=== PATIENT | male | born 1940 | race Caucasian/White ===

== ENCOUNTER 2020-12-12 09:45 | Observation (INO) ==
--- NOTE | 2020-12-11 09:14 | History & Physical Report ---
Date of Service December 11, 2020 Assessment & Plan (1) Primary osteoarthritis of right knee: Plan: Treatment options discussed with patient. He has failed conservative measures. He would like to proceed with surgical intervention. Risks, benefits and alternatives to surgery including but not limited to infection, DVT, pain, stiffness, need for revision surgery, damage to blood vessels, damage to nerves, PE, , were discussed with the patient and they wish to proceed. Plan on Right total knee arthroplasty on 12/12/20 at [facility]. Will plan on HHPT post discharge, ASA 81mg BID x 1 mo post op. All questions answered. F/u post op. History of Present Illness Chief Complaint: Right knee pain Primary Care Provider: Yarely Ayala MD 80 year old male with PMHx significant for hx of [place], DM2, ANABEL, GERD, chronic anemia, HTN who presents with long standing right knee pain. He has failed conservative measures including injections. Pain interfering with his ability to carry out normal daily activity. He would like to proceed with surgical intervention. Patient denies headaches, sweats, fevers, chills, double vision, blurred vision, cough, sore throat, dysphagia, chest pain, sob, wheezing, n/v/d/c, numbness, tingling, fatigue, urinary symptoms, mood disorders. ROS positive for right knee pain and stiffness. Allergies Allergy/AdvReac Type Severity Reaction Status Date / Time diphenhydramine AdvReac Rash Verified 12/07/20 09:39 [From Benadryl] oxycodone AdvReac Rash Verified 12/07/20 09:39 Home Medications Medication Instructions Recorded Confirmed Type duloxetine 60 mg capsule,delayed 60 mg PO QAM 02/27/20 12/07/20 History release ezetimibe 10 mg tablet (Zetia) 10 mg PO PM 02/27/20 12/07/20 History ferrous sulfate 325 mg (65 mg 325 mg PO QAM 02/27/20 12/07/20 History iron) capsule,extended release lisinopril 10 mg tablet 10 mg PO QAM 02/27/20 12/07/20 History metformin 500 mg tablet 500 mg PO BID 02/27/20 12/07/20 History multivitamin 1 cap PO QAM 02/27/20 12/07/20 History omeprazole 20 mg capsule,delayed 20 mg PO QAM 02/27/20 12/07/20 History release simvastatin 40 mg tablet 40 mg PO HS 02/27/20 12/07/20 History Past Med/Surg History Medical History (Updated 12/11/20 @ 09:12 by Hira Durant) Diabetes mellitus, type 2 NIDDM High cholesterol History of COVID-19 05/2019 had all symptoms and was not hospitalized RINCON (hard of hearing) Hypertension Myocardial Infarction s/p CABG (1999) Osteoarthritis Surgical History (Updated 12/07/20 @ 09:43 by Betty Solitario RN) History of ankle surgery left History of arthroscopy of right shoulder History of carpal tunnel surgery right and left History of coronary artery bypass graft CABG (1999) x 4 at [facility] follow with DR. Villeda History of tooth extraction all teeth Social History Smoking Status: Current some day smoker Cigarettes Per Day: ocas; Second Hand Exposure: No; Hx Alcohol Use: No Hx Substance Use: No Preferred Language: Serbian Communication Ability: Effective Prototyper Required: No Beliefs That Will Affect Care: None Current Living Situation: Spouse Feels Safe at Home: Yes Assistive Devices: Glasses Review of Systems All systems reviewed & are unremarkable except as noted in HPI & below Physical Exam Constitutional: well developed and well nourished; no acute distress Eyes: PERRL, conjunctivae normal, anicteric sclerae ENMT: external ear and nose normal, oropharynx normal Neck: trachea midline, no thyromegaly Respiratory: normal respiratory effort, lungs clear to auscultation Cardiovascular: RRR, no murmur, no edema Musculoskeletal: Right knee: Varus alignment. Tenderness medial joint line. Negative valgus and varus stress, positive Marcela's. ROM 0-125. Skin: no rashes, warm and dry Neurologic: patellar DTR's 2+ bilat, sensation intact Psychiatric: A+Ox3, euthymic affect Results & Data ([facility]) Diagnostic Findings Right knee: severe oa medially with bone on bone and bone loss, large cyst prox tibia. Medial subluxation tibia.
--- NOTE | 2020-12-11 10:03 | Anesthesiology Consultation ---
Date of Service December 11, 2020 Assessment & Plan (1) Encounter for pre-operative examination: Chart Review Chart Review: Acceptable Risk for Surgery and Patient NOT seen in Pre Admission Testing - Check BSG AM DOS Per nursing assessment 12/07/2020, patient denies any recent travel. No known Covid infection in the past 90 days. Patient is vaccinated for Covid. No known Covid positive contacts or Covid related symptoms. Covid test 12/07/20= negative Per PCP phone note 11/14/2020 = recent labs reviewedblood count and iron levels are improved after iron infusions. " I do now consider him medically stable to undergo knee replacement." PCP will notify surgeon so that knee surgery can be rescheduled. Patient is to continue iron supplement by mouth daily. History Surgery Operation Date: 12/12/20 12:05 Proposed Procedures p Right Total Knee Arthroplasty - Franklyn Raza MD Height/Weight Height: 5 ft 10 in Weight: 88.904 kg Allergies Allergy/AdvReac Type Severity Reaction Status Date / Time diphenhydramine AdvReac Rash Verified 12/07/20 09:39 [From Benadryl] oxycodone AdvReac Rash Verified 12/07/20 09:39 Medications Home Medications Medication Instructions Recorded Confirmed Last Taken duloxetine 60 mg capsule,delayed 60 mg PO QAM 02/27/20 12/07/20 Unknown release ezetimibe 10 mg tablet (Zetia) 10 mg PO PM 02/27/20 12/07/20 Unknown ferrous sulfate 325 mg (65 mg 325 mg PO QAM 02/27/20 12/07/20 Unknown iron) capsule,extended release lisinopril 10 mg tablet 10 mg PO QAM 02/27/20 12/07/20 Unknown metformin 500 mg tablet 500 mg PO BID 02/27/20 12/07/20 Unknown multivitamin 1 cap PO QAM 02/27/20 12/07/20 Unknown omeprazole 20 mg capsule,delayed 20 mg PO QAM 02/27/20 12/07/20 Unknown release simvastatin 40 mg tablet 40 mg PO HS 02/27/20 12/07/20 Unknown Past Medical History Medical History Diabetes mellitus, type 2 NIDDM High cholesterol History of COVID-19 05/2019 had all symptoms and was not hospitalized QAWALANGIN (hard of hearing) Hypertension Myocardial Infarction s/p CABG 4 vessel (1999) Osteoarthritis Past Surgical History Surgical History History of ankle surgery left History of arthroscopy of right shoulder History of carpal tunnel surgery right and left History of coronary artery bypass graft CABG (1999) x 4 at [facility] follow with DR. Villeda History of tooth extraction all teeth Social History Smoking Status: Current some day smoker tobacco type: cigarettes Smoking cigarettes per day: ocas Do You Dip or Chew Tobacco: No Hx Alcohol Use: No Hx Substance Use: No substance use type: does not use Lab Results Anesthesia Preop Results Results Anesthesia Widget: WBC 5.44 K/uL (4.8-10.8) 12/07/20 Hgb 10.8 g/dL (14.0-18.0) L 12/07/20 Hct 33.4 % (42-52) L 12/07/20 Plt 238 K/uL (130-400) 12/07/20 Na 138 mmol/L (136-145) 12/07/20 K 4.7 mmol/L (3.5-5.1) 12/07/20 Cl 110 mmol/L (98-107) H 12/07/20 CO2 23 mmol/L (21-32) 12/07/20 BUN 22 mg/dl (7-18) H 12/07/20 Creat 1.54 mg/dl (0.6-1.4) H 12/07/20 Glucose Level 95 mg/dl (70-99) 12/07/20 PT 9.8 Seconds (9.0-12.0) 12/07/20 PTT 27.9 Seconds (21.0-31.0) 12/07/20 INR 1.0 (0.9-1.1) 12/07/20 HA1c 6.2 % (4.5-5.6) H 12/07/20 Urine Color Yellow 12/07/20 Urine Appearance Clear (Clear) 12/07/20 Urine pH 5.5 (4.5-7.5) 12/07/20 Urine Specific [place] 1.015 (1.000-1.030) 12/07/20 Urine Protein Negative (Negative) 12/07/20 Urine Glucose (UA) Negative (Negative) 12/07/20 Urine Ketones Negative (Negative) 12/07/20 Urine Blood Negative (Negative) 12/07/20 Urine Nitrite Negative (Negative) 12/07/20 Urine Bilirubin Negative (Negative) 12/07/20 Urine Urobilinogen Negative (Negative) 12/07/20 Urine Leukocyte Esterase Negative (Negative) 12/07/20 Blood Type A Positive 12/07/20 Antibody Screen NEGATIVE 12/07/20 Lab Comments: Anemia chronic and stable since at least Mar 2020 Creatine ranges from 1.3-1.5 since at least January 2020 Testing Electrocardiogram Date: 03/06/20 SB with first degree AVB at 59bpm. NS TWA. Chest X-Ray Date: 01/13/20 No plain film evidence of acute cardiopulmonary process. Nonspecific interstitial prominence. Basilar scar/atelectasis. Echocardiogram Date: 01/18/20 EF 55%. Grade 1 diastolic dysfunction moderate LAD. Mild RAD. Mild MR. Mild to moderate AR directed centrally. Physiologic [place] directed centrally. Interatrial septum has lipomatous hypertrophy. Enlarged aortic root.
[~2020-12-12 09:45] MED LIST: ACETAMINOPHEN 500 MG TAB PO SCH; BUPIVACAINE 0.25% 30 ML VIAL ONE; BUPIVACAINE 0.5 % 5 MG/1 ML PF 10ML VIAL ONE; CeleBREX 200 MG CAP PO SCH; FAMOTIDINE 20 MG TAB PO SCH; GABAPENTIN 300 MG CAP PO SCH; LR 500ML BOLUS, THEN 15ML/HR IV SCH; METOCLOPRAMIDE HCL 10 MG TABLET PO SCH; ROPIVACAINE 0.5% HCL/PF 150 MG, BUPIVACAINE 0.75% MPF 20 ML, EPINEPHrine 30MG/30ML (OR ... INSTIL SCH; TRANEXAMIC ACID 1,000 MG **IV Intra-op IV SCH; TRANEXAMIC ACID 1,000 MG **IV Pre-op IV SCH; ceFAZolin 2000MG 2,000 MG/15 ML SYR IV SCH
[2020-12-12] MEDS ORDERED: fentaNYL citrate 100 MCG/2 ML VIAL ONE (11:24)
[2020-12-12] MEDS ORDERED: PROPOFOL IV EMULSION 10 MG/ML 20 ML VIAL IV ONE (11:24)
[2020-12-12] MEDS ORDERED: fentaNYL citrate 100 MCG/2 ML VIAL IV PRN (11:35)
[2020-12-12] MEDS ORDERED: ePHEDrine sulfate 50 MG/ML AMP IV PRN (11:35)
[2020-12-12] MEDS ORDERED: ONDANSETRON INJ 2 MG/ML 2 ML VIAL IV PRN ×2 (11:35→16:54)
[2020-12-12] MEDS ORDERED: ATROPINE SULFATE 0.1 MG/ML 10ML SYR IV PRN (11:35)
--- NOTE | 2020-12-12 12:07 | History & Physical Bridge Note ---
Date of Service December 12, 2020 History & Physical Bridge Note I have examined the patient, reviewed the History & Physical and in the interval since the performance of the History & Physical I have noted the following changes of clinical significance: no changes noted
[2020-12-12] MEDS ORDERED: ORTHO JOINT ANESTHETIC ONE (12:27)
[2020-12-12] MEDS ORDERED: HYDROmorphone INJ 2 MG/ML SYR/VIAL ONE (13:21)
--- NOTE | 2020-12-12 15:04 | Post Operative Brief Note ---
Immediate Post Op Note v1 Date of Surgery December 12, 2020 Pre & Post Diagnosis Operation Date: 12/12/20 12:05 Pre-Op Diagnosis: Osteoarthritis, Right Knee, large tibial bone cyst Post-Op Diagnosis: Osteoarthritis, Right Knee, large tibial bone cyst I identified the patient and participated in the time-out.: Yes Procedure Operation Date: 12/12/20 12:05 Actual Procedures p Right Total Knee Arthroplasty(Right) curettage and cementing of tibial bone cyst and superficial wound VAC- Franklyn Raza MD Surgeon Franklyn Raza MD Carbon Lamp Cleaner Georges ROGERS Estimated Blood Loss 5 Findings Consistent with Post-Op Diagnosis Specimens Bone cuts Drains Hemovac Drain Anesthesia Type MAC Spinal Regional Complications none Disposition Disposition: Recovery Room Overlapping Procedure I was immediately available: during the entire case.
--- NOTE | 2020-12-12 15:29 | Operative Report ---
Post Operative Report Pre & Post Diagnosis Operation Date: 12/12/20 12:05 Pre-Op Diagnosis: Osteoarthritis, Right Knee, large proximal tibial bone cyst Post-Op Diagnosis: Osteoarthritis, Right Knee, large proximal tibial bone cyst I identified the patient and participated in the time-out.: Yes Procedure Operation Date: 12/12/20 12:05 Actual Procedures p Right Total Knee Arthroplasty(Right), curettage bone cyst with cement fixation cyst, superficial wound VAC- Franklyn Raza MD Surgeon Franklyn Raza MD Thin Film Technician Georges ROGERS Estimated Blood Loss 5 Findings Consistent with Post-Op Diagnosis Specimens Bone cuts Drains 2 Hemovac Anesthesia Type MAC Spinal Regional Complications none Disposition Disposition: Recovery Room Indications 78-year-old male with progressive osteoarthritis of his right knee. 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 Description of Procedure Patient taken to the operating room the size under spinal MAC regional anesthesia. Patient was placed supine on the operating table. A pneumatic tourniquet was placed about the right upper thigh. The right lower extremity was prepped and draped in sterile fashion. Knee exam demonstrated 5 through 120 degrees range of motion and instability with [place] exam and varus valgus stress and moderately large effusion. The leg was elevated exsanguinated with an Esmarch bandage and pneumatic tourniquet was raised to 300 millimeters of mercury. Skin incised sharply in longitudinal fashion. Subcutaneous flaps elevated. Incision was made through the medial retinaculum extending up in the mid third of the quadriceps tendon and down to the medial tibial tubercle. Intra-articular findings demonstrated severe tricompartmental osteoarthritis [id number] medial and lateral compartments of bone loss in the lateral compartment. ACL was chronically torn and menisci were chronically torn.. The [employer] triMall Streetlon total knee arthroplasty system was used. To expose the knee the infrapatellar fat pad was resected. The meniscal remnants and posterior cruciate ligament were resected. The anterior fat pad over the femur in the area of the anterior flange of the femoral component was resected. Lateral synovial bands release. The femur was exposed. An intramedullary drill hole was made into the canal. A guide francesca was placed. Distal femoral cutting guide was adjusted to resect a 5 degree valgus cut with 8 millimeters distal femur resected. The knee was extended and a subperiosteal peel lateral release was performed around the patella. Patella width was measured and width was reproduced using a freehand cut technique and a 36 x 10 symmetrical patella component. The 3 drill holes were made and the excess lateral facet was beveled off to prevent any impingement. Attention was taken back to the femur which was exposed with retractors and the femoral sizing guide was pinned in position. The drill holes were placed in 3 of external rotation to match epicondylar axis. Femur sized for a 7 component. Because there was an AP ML mismatch use the +1.5 block to adjust the anterior cut anteriorly 1.5 mm. The 4-in-1 cutting block was placed and then the anterior posterior and chamfer cuts are made. The tibia was then subluxed. The external tibial cutting guide was just to make a perpendicular cut to the long axis of the tibia below the most deficient bone loss side. This revealed the large posterior medial bone cyst. This measured 4 x 3 x 3 cm. The cyst was curetted out of all cyst material which just appeared to look like degenerative type benign cyst material but it was a very large cyst. There are multiple smaller cyst that were also curetted out on both the medial lateral aspect of the tibial plateau. A lamina blueprint assembler was used and the flexion extension gaps were balanced. All posterior osteophytes removed. All meniscal remnants were resected. The tibia exposed and the trial tibial component size 7 was externally rotated in line with the tibial tubercle and pinned in position. The bone was very sclerotic and we used the drill for the 100 mm stem and when using the punch we had to use an oscillating saw on the medial side due to the very sclerotic bone in order to seat the punch fully. The punch for stem was fully seated after utilizing the saw.. The notch cutting device was centered appropriately and the femoral notch cut was made. The size 7 femoral trial was inserted. Trial tibial inserts were placed and size 13 PS gave balanced ligaments through flexion and extension. Patella tracking was assessed. The patella tracked centrally. The trial components were then removed and the orthomix anesthetic cocktail was injected per protocol. The knee was then copiously irrigated with pulsatile lavage saline solution. Final components were then cemented with Simplex cement and the cyst was cemented as well.. Final components were triathlon universal tibial baseplate size 7 with a 12 x 100 mm cemented stem, size 7 triathlon right posterior stabilized femoral component, the triathlon X.3 polyethylene size 13 tibial bearing insert and the X.3 symmetrical patella 36 x 10 mm.. After the cement cured the Betadine soak was used per protocol. After cement cured further pulsatile lavage irrigation performed and 2 Hemovac drains were brought out laterally. The quadriceps tendon and medial retinaculum were closed with figure of 8 #1 Vicryl sutures. The knee was taken through full range of motion and the repair was secure. Patient has 0 through 135 degrees range of motion. The subcutaneous tissues were closed with 2-0 Vicryl sutures. Skin was closed with nataliya. A jaden and Acticoat superficial wound VAC was applied. Patient procedure well. Georges ROGERS was my physician student assistant who assisted in patient positioning prepping and draping,leg positioning ,soft tissue retraction and instrument management and participated in the closing and will participate in postoperative care of the patient. The patient tolerated the procedure well. I attest to the content of the Intraoperative Record and any orders documented therein. Any exceptions are noted below.
--- NOTE | 2020-12-12 16:03 | XRay Report ---
XR knee RT 1 or 2V routine CLINICAL HISTORY: Postoperative evaluation. COMPARISON: None FINDINGS: Alignment of the total right knee arthroplasty is anatomic. There is no periprosthetic fra cture or unexpected radiopaque foreign body. There are skin nataliya. Surgical drains are in place. IMPRESSION: Expected findings following total right knee arthroplasty. ACT 112: Negative or not required by law. Electronically signed by: Bob Sellers M.D. 12/12/2020 4:02 PM
--- NOTE | 2020-12-12 16:29 | Anesthesiology Progress Note ---
Date of Service December 12, 2020 Anesthesia Post Procedure Vital Signs Vital Signs: Temp Pulse Pulse Resp BP Pulse Ox 12/12/20 16:24 36.9 C 56 L 16 148/58 H 100 12/12/20 16:15 36.5 C 61 20 143/63 H 100 12/12/20 16:05 63 15 125/48 L 100 12/12/20 15:55 59 L 13 134/51 L 99 12/12/20 15:45 36.9 C 66 20 168/69 H 100 12/12/20 10:20 37.2 C 73 18 198/85 H 98 Transfer of Care Handoff Completed per policy Notes Mental Status: alert / awake / arousable and participated in evaluation Patient Amnestic to Procedure: Yes Nausea / Vomiting: adequately controlled Pain: adequately controlled Airway Patency, RR, SpO2: stable & adequate BP & HR: stable & adequate Hydration State: stable & adequate Anesthetic Complications: no major complications apparent and Pt Satisfied with anesthetic care
[2020-12-12] MEDS ORDERED: HYDROmorphone INJ 0.5 MG/0.5 ML SYR IV PRN (16:54)
[2020-12-12] MEDS ORDERED: NALOXONE HCL 0.4 MG/1 ML VIAL/CARP IV PRN (16:54)
[2020-12-12] MEDS ORDERED: MAGNESIUM HYDROXIDE SUSP 30 ML UDC PO PRN (16:54)
[2020-12-12] MEDS ORDERED: PHARMACY GLYCEMIC MGMT CONSULT PRN (16:54)
[2020-12-12] MEDS ORDERED: bisacodyL 10 MG SUPP PR PRN (16:54)
[2020-12-12] MEDS ORDERED: TAMSULOSIN HCL 0.4 MG CAP PO PRN (16:54)
[2020-12-12] MEDS ORDERED: METOCLOPRAMIDE HCL INJ 5 MG/ML 2 ML VIAL IV PRN (16:54)
[2020-12-12] MEDS: SODIUM CHLORIDE 0.9% 1000ML 1,000 ML IV SCH (17:43)
[2020-12-12] MEDS ORDERED: CARBOHYDRATES FOR HYPOGLYCEMIA PO PRN (17:45)
[2020-12-12] MEDS ORDERED: GLUCOSE 10 TABS/TUBE PO PRN (17:45)
[2020-12-12] MEDS ORDERED: GLUCOSE 40% GEL 15 GM TUBE PO PRN (17:45)
[2020-12-12] MEDS ORDERED: DEXTROSE 50% 50 ML SYRINGE IV PRN (17:45)
[2020-12-12] MEDS ORDERED: GLUCAGON FOR INJ 1 MG VIAL IM PRN (17:45)
[2020-12-12] MEDS: INSULIN ASPART 100 UNITS/ML 3 ML PEN SC SCH ×2 (17:54→22:48)
[2020-12-12] MEDS: ceFAZolin 2000MG 2,000 MG/15 ML SYR IV SCH (21:35)
[2020-12-12] MEDS: SENNA 8.6 MG TAB PO SCH (21:38)
[2020-12-12] MEDS: DOCUSATE SODIUM 100 MG CAP PO SCH (21:38)
[2020-12-12] MEDS: ASPIRIN 81 MG ECTAB PO SCH (21:39)
[2020-12-12] MEDS: EZETIMIBE 10 MG TABLET PO SCH (21:39)
[2020-12-12] MEDS: SIMVASTATIN 40 MG TAB PO SCH (21:39)
[2020-12-13] MEDS: ceFAZolin 2000MG 2,000 MG/15 ML SYR IV SCH (03:25)
[2020-12-13 06:11] LABS: Hematocrit (blood only) 28.9 % (42-52); Hemoglobin 9.4 g/dL (14.0-18.0); Mean Corpuscular Hemoglobin 29.8 pg (25-34); Mean Corpuscular Hgb Conc 32.5 g/dL (32-36); Mean Corpuscular Volume 91.7 fL (80-100); Mean Platelet Volume 8.5 fL (7.4-10.4); Platelet Count 199 K/uL (130-400); RDW Coefficient of Variation 16.6 % (11.5-14.5); RDW Standard Deviation 55.6 fL (36.4-46.3); Red Blood Count 3.15 M/uL (4.7-6.1); White Blood Count 6.67 K/uL (4.8-10.8)
[2020-12-13] MEDS: SODIUM CHLORIDE 0.9% 1000ML 1,000 ML IV SCH (06:26)
[2020-12-13 06:37] LABS: BUN Creatinine Ratio 14.9 (10-20); Creatinine Clr Calc Pharmacy 36.1 ml/min; Est GFR (African American) 44.8 ml/min; Est GFR (Non-African American) 38.7 ml/min; Potassium 4.1 mmol/L (3.5-5.1)
--- NOTE | 2020-12-13 07:12 | Orthopedic Progress Note ---
Date of Service December 13, 2020 Assessment & Plan (1) Status post total right knee replacement: Plan: POD#1 Right TKA -PT/OT -DVT prophylaxis-SCDs, TEDs, ASA 81mg bid -Pain management as written -Hemoglobin 9.4 this morning acute blood loss anemia due to surgical loss vs dilutional. Patient does have baseline chronic anemia. Creatinine elevated to 1.63 this morning from 1.54 at baseline. -D/c planning-home with home therapy when stable, possibly today, more likely plan on discharge tomorrow. Will recheck him later today. Admission and Anticipated Discharge Date Admission Date: December 12, 2020 Review of Systems Review of Systems: All systems reviewed & are unremarkable except as noted in Subjective Physical Exam Physical Exam: Right knee dressing is c/d/i, toes mobile with good dorsiflexion. No calf tenderness. Distally n/vs status and sensation are intact. Constitutional: well developed and well nourished; no acute distress Results & Data ([facility]) Vital Signs (Past 12 Hours) Vital Signs Temp Pulse Resp BP Pulse Ox 12/13/20 07:05 36.6 C 60 16 150/57 H 95 12/13/20 03:32 36.8 C 52 L 16 165/69 H 94 12/12/20 22:01 36.4 C L 51 L 16 155/56 H 98 Diagnostic Findings Lab Results 12/12/20 12/12/20 12/12/20 Range/Units 10:04 10:04 10:08 WBC (4.8-10.8) K/uL RBC (4.7-6.1) M/uL Hgb (14.0-18.0) g/dL Hct (42-52) % MCV (80-100) fL MCH (25-34) pg MCHC (32-36) g/dL RDW Std Deviation (36.4-46.3) fL RDW Coeff of Chrystal (11.5-14.5) % Plt Count (130-400) K/uL MPV (7.4-10.4) fL Sodium (136-145) mmol/L Potassium (3.5-5.1) mmol/L Chloride (98-107) mmol/L Carbon Dioxide (21-32) mmol/L Anion Gap (3-11) BUN (7-18) mg/dl Creatinine (0.6-1.4) mg/dl Est Cr Clr Drug Dosing ml/min Est GFR ( Amer) ml/min Est GFR (Non-Af Amer) ml/min BUN/Creatinine Ratio (10-20) Glucose (70-99) mg/dl POC Glucose 121 H (70-99) mg/dl Calcium (8.5-10.1) mg/dl COVID-19 Eval Order Covid19 [facility]Now [facility] SARS-CoV-2, RNA, NAAT NEGATIVE (NEGATIVE) 12/12/20 12/12/20 12/13/20 Range/Units 16:33 20:25 05:28 WBC 6.67 (4.8-10.8) K/uL RBC 3.15 L (4.7-6.1) M/uL Hgb 9.4 L (14.0-18.0) g/dL Hct 28.9 L (42-52) % MCV 91.7 (80-100) fL MCH 29.8 (25-34) pg MCHC 32.5 (32-36) g/dL RDW Std Deviation 55.6 H (36.4-46.3) fL RDW Coeff of Chrystal 16.6 H (11.5-14.5) % Plt Count 199 (130-400) K/uL MPV 8.5 (7.4-10.4) fL Sodium (136-145) mmol/L Potassium (3.5-5.1) mmol/L Chloride (98-107) mmol/L Carbon Dioxide (21-32) mmol/L Anion Gap (3-11) BUN (7-18) mg/dl Creatinine (0.6-1.4) mg/dl Est Cr Clr Drug Dosing ml/min Est GFR ( Amer) ml/min Est GFR (Non-Af Amer) ml/min BUN/Creatinine Ratio (10-20) Glucose (70-99) mg/dl POC Glucose 139 H 117 H (70-99) mg/dl Calcium (8.5-10.1) mg/dl COVID-19 Eval Order SARS-CoV-2, RNA, NAAT (NEGATIVE) 12/13/20 Range/Units 05:28 WBC (4.8-10.8) K/uL RBC (4.7-6.1) M/uL Hgb (14.0-18.0) g/dL Hct (42-52) % MCV (80-100) fL MCH (25-34) pg MCHC (32-36) g/dL RDW Std Deviation (36.4-46.3) fL RDW Coeff of Chrystal (11.5-14.5) % Plt Count (130-400) K/uL MPV (7.4-10.4) fL Sodium 138 (136-145) mmol/L Potassium 4.1 (3.5-5.1) mmol/L Chloride 112 H (98-107) mmol/L Carbon Dioxide 21 (21-32) mmol/L Anion Gap 5.0 (3-11) BUN 24 H (7-18) mg/dl Creatinine 1.63 H (0.6-1.4) mg/dl Est Cr Clr Drug Dosing 36.1 ml/min Est GFR ( Amer) 44.8 ml/min Est GFR (Non-Af Amer) 38.7 ml/min BUN/Creatinine Ratio 14.9 (10-20) Glucose 116 H (70-99) mg/dl POC Glucose (70-99) mg/dl Calcium 8.0 L (8.5-10.1) mg/dl COVID-19 Eval Order SARS-CoV-2, RNA, NAAT (NEGATIVE)
[2020-12-13] MEDS: FERROUS SULFATE 325 MG TAB PO SCH (08:31)
[2020-12-13] MEDS: ASPIRIN 81 MG ECTAB PO SCH ×2 (08:31→20:06)
[2020-12-13] MEDS: PANTOprazole 40 MG TAB PO SCH (08:31)
[2020-12-13] MEDS: MULTIVITAMIN TAB PO SCH (08:31)
[2020-12-13] MEDS: DULoxetine HCL 60 MG CAP PO SCH (08:31)
[2020-12-13] MEDS: lisinopril 10 MG TAB PO SCH (08:31)
[2020-12-13] MEDS: DOCUSATE SODIUM 100 MG CAP PO SCH ×2 (08:31→20:06)
[2020-12-13] MEDS: INSULIN ASPART 100 UNITS/ML 3 ML PEN SC SCH ×5 (08:32→22:37)
[2020-12-13] MEDS ORDERED: NON-FORMULARY MEDICATION (Multivitamin Capsule) PO SCH (09:00)
--- NOTE | 2020-12-13 10:14 | Pharmacy Report ---
Pharmacy Glycemic Short Note 2 - Date of Service December 13, 2020 - Glycemic Short BSG Results (Last 24 hours): 12/12/20 12/12/20 12/12/20 10:08 16:33 20:25 Glucose POC Glucose 121 H 139 H 117 H 12/13/20 12/13/20 05:28 08:08 Glucose 116 H POC Glucose 143 H OUTPATIENT ANTIDIABETIC REGIMEN: * Metformin 500mg PO BID * A1c - 6.2% on 12/07/20 ASSESSMENT: * 80yo T2DM male with well controlled DM per recent A1c * Pt is maintained on oral antidiabetic agents as an outpatient * Oral agents are not recommended for inpatient use d/t drug interactions, changing PO intake, and difficulty titrating for acute hyper/hypoglycemia. ADA recommends re-initiating outpatient oral agents 1-2 days prior to discharge if/when appropriate if they were held on admission. * Will hold oral agents for admission and utilize SQ basal bolus insulin regimen which is the recommended regimen for inpatient glycemic control. * Will initiate weight based insulin dosing for insulin marcel patient and titrate based on BSG trends. * No basal insulin needed - secondary to no steroids and all BSGs <150 * Will continue with CF/CR bolus insulin monotherapy - Scr is elevated therefore will hold off on resuming metformin until Scr back to baseline. PLAN FOR INPATIENT GLYCEMIC CONTROL: * Hold outpatient oral diabetes medications * Basal insulin * N/A * Bolus insulin * NovoLog per scale ACHS or Q6hrs while NPO * Goal Range: Low 110 mg/dL - High 140 mg/dL * Correction Factor: 30 mg/dL/unit * Nutritional / Prandial insulin per carb ratio of 1 unit per 9 grams CHO co nsumed PLAN FOR DISCHARGE: * A1c is in goal range. No changes needed to outpatient regimen
[2020-12-13] MEDS ORDERED: LACTATED RINGER'S 1,000 ML IV SCH (11:00)
[2020-12-13] MEDS: HYDROCODONE/ACETAMOPHEN 5/325MG TAB PO PRN ×2 (12:03→20:19)
[2020-12-13] MEDS: SENNA 8.6 MG TAB PO SCH (20:05)
[2020-12-13] MEDS: EZETIMIBE 10 MG TABLET PO SCH (20:05)
[2020-12-13] MEDS: SIMVASTATIN 40 MG TAB PO SCH (20:06)
--- NOTE | 2020-12-13 22:35 | Hospitalist Consultation ---
Date of Consultation December 13, 2020 Assessment & Plan (1) Status post total right knee replacement: as per primary team DVT prophylaxis per primary team (2) Diabetes mellitus, type 2: glycemic control on obard. (3) High cholesterol: resume home meds. Thank you for allowing us to participate in his care. will sign off case. History of Present Illness Reason for Consultation: medical management Attending Physician: Franklyn Raza MD History of Present Illness 80 yo male presents to the hospital for right total knee replacement. Patient currently has no new symptoms. Past medical history below Allergies Allergy/AdvReac Type Severity Reaction Status Date / Time diphenhydramine AdvReac Rash Verified 12/12/20 10:16 [From Benadryl] oxycodone AdvReac Rash Verified 12/12/20 10:16 Home Medications Medication Instructions Recorded Confirmed Type duloxetine 60 mg capsule,delayed 60 mg PO QAM 02/27/20 12/12/20 History release ezetimibe 10 mg tablet (Zetia) 10 mg PO PM 02/27/20 12/12/20 History ferrous sulfate 325 mg (65 mg 325 mg PO QAM 02/27/20 12/12/20 History iron) capsule,extended release lisinopril 10 mg tablet 10 mg PO QAM 02/27/20 12/12/20 History metformin 500 mg tablet 500 mg PO BID 02/27/20 12/12/20 History multivitamin 1 cap PO QAM 02/27/20 12/12/20 History omeprazole 20 mg capsule,delayed 20 mg PO QAM 02/27/20 12/12/20 History release simvastatin 40 mg tablet 40 mg PO HS 02/27/20 12/12/20 History Patient History Medical History (Updated 12/13/20 @ 22:52 by Jorge A Brambila) Diabetes mellitus, type 2 NIDDM High cholesterol History of COVID-19 05/2019 had all symptoms and was not hospitalized [place] (hard of hearing) Hypertension Myocardial Infarction s/p CABG 4 vessel (1999) Osteoarthritis Surgical History History of ankle surgery left History of arthroscopy of right shoulder History of carpal tunnel surgery right and left History of coronary artery bypass graft CABG (1999) x 4 at [facility] follow with DR. Villeda History of tooth extraction all teeth Social History Smoking Status: Current some day smoker Cigarettes Per Day: ocas; Second Hand Exposure: No; Do You Dip or Chew Tobacco: No; Tobacco Cessation Education Requested by Patient: No Hx Alcohol Use: No Hx Substance Use: No Preferred Language: Uzbek Communication Ability: Effective Communication Ability Comment: [place] Skinning Machine Feeder Required: No Beliefs That Will Affect Care: None marital status: Current Living Situation: Spouse Other Information That Helps Us Care for You: No Feels Safe at Home: Yes Safety Concerns: Feels Safe At This Time Assistive Devices: Walker Review of Systems Review of Systems: All systems reviewed & are unremarkable except as noted in HPI & below Physical Exam Constitutional: WD/WN, vitals as above Eyes: PERRL, conjunctivae normal, anicteric sclerae ENMT: external ear and nose normal, oropharynx normal Neck: trachea midline, no thyromegaly Respiratory: normal respiratory effort, lungs clear to auscultation Cardiovascular: RRR, no murmur, no edema Gastrointestinal (Abdomen): normal bowel sounds, soft, nontender, no hepatosplenomegaly Musculoskeletal: no cyanosis or clubbing, extremities motor strength 5/5 Neurologic: PERRL, EOMI, accommodation nl, no face palsy, no dysarthria Psychiatric: A+Ox3, euthymic affect Lymphatic: no cervical or axillary lymphadenopathy Results & Data Results & Data ([facility]) Vital Signs (Past 12 Hours) Vital Signs Temp Pulse Resp BP Pulse Ox 12/13/20 14:54 36.6 C 64 16 142/56 H 94 12/13/20 11:14 36.8 C 68 16 136/54 L 96 PG Care Time/CCT Total # of Minutes Spent Total Time Spent with Patient: Total time spent is greater than 50% in coordination of care (as documented) at patient's floor/unit and/or counseling patient: Coding Level of Care Code 95616 Inpt Consult Level 3 Diagnoses Status post total right knee replacement Z96.651 Diabetes mellitus, type 2 E11.9 High cholesterol E78.00
[2020-12-14] MEDS: HYDROCODONE/ACETAMOPHEN 5/325MG TAB PO PRN ×2 (04:26→11:49)
[2020-12-14 06:32] VITALS: BP 182/70; PULSE 71; TEMP 98.4; O2SAT 95
[2020-12-14] MEDS: lisinopril 10 MG TAB PO SCH (06:42)
--- NOTE | 2020-12-14 06:44 | Orthopedic Progress Note ---
Date of Service December 14, 2020 Assessment & Plan (1) Status post total right knee replacement: Plan: POD#2 Right TKA -PT/OT -DVT prophylaxis-SCDs, TEDs, ASA 81mg bid -Pain management as written -AM labs pending -D/c planning-home with home therapy when stable, plan on discharge today after therapy. Admission and Anticipated Discharge Date Admission Date: December 12, 2020 Subjective Patient doing well this morning. Mild pain but controlled. No other complaints. Denies chest pain, sob, dizziness, headache, fever, chills. Review of Systems Review of Systems: All systems reviewed & are unremarkable except as noted in Subjective Physical Exam Physical Exam: Right knee CARLOS dressing is c/d/i, toes mobile with good dorsiflexion. No calf tenderness. Distally n/vs status and sensation are intact. Constitutional: well developed and well nourished; no acute distress Results & Data ([facility]) Vital Signs (Past 12 Hours) Vital Signs Temp Pulse Pulse Resp BP Pulse Ox 12/14/20 06:28 36.9 C 71 18 182/70 H 95 12/13/20 23:03 64 159/58 H 12/13/20 22:58 37.0 C 67 18 171/61 H 92
[2020-12-14] MEDS: MULTIVITAMIN TAB PO SCH (07:17)
[2020-12-14] MEDS: ASPIRIN 81 MG ECTAB PO SCH (07:17)
[2020-12-14] MEDS: DOCUSATE SODIUM 100 MG CAP PO SCH (07:18)
[2020-12-14] MEDS: PANTOprazole 40 MG TAB PO SCH (07:18)
[2020-12-14] MEDS: DULoxetine HCL 60 MG CAP PO SCH (07:18)
[2020-12-14] MEDS: FERROUS SULFATE 325 MG TAB PO SCH (07:18)
[2020-12-14] MEDS: INSULIN ASPART 100 UNITS/ML 3 ML PEN SC SCH (08:26)
[2020-12-14 08:34] LABS: Basophils # (auto) 0.02 K/uL (0-0.2); Basophils % (auto) 0.3 %; Eosinophils # (auto) 0.17 K/uL (0-0.5); Eosinophils % (auto) 2.3 %; Hematocrit (blood only) 29.5 % (42-52); Hemoglobin 9.7 g/dL (14.0-18.0); Immature Granulocytes # (auto) 0.02 K/uL (0.00-0.02); Immature Granulocytes % (auto) 0.3 %; Lymphocytes # (auto) 0.62 K/uL (1.2-3.4); Lymphocytes % (auto) 8.2 %; Mean Corpuscular Hemoglobin 29.7 pg (25-34); Mean Corpuscular Hgb Conc 32.9 g/dL (32-36); Mean Corpuscular Volume 90.2 fL (80-100); Mean Platelet Volume 8.8 fL (7.4-10.4); Monocytes # (auto) 0.98 K/uL (0.11-0.59); Neutrophils # (auto) 5.74 K/uL (1.4-6.5); Neutrophils % (auto) 75.9 %; Platelet Count 198 K/uL (130-400); RDW Coefficient of Variation 16.5 % (11.5-14.5); RDW Standard Deviation 54.8 fL (36.4-46.3); Red Blood Count 3.27 M/uL (4.7-6.1); White Blood Count 7.55 K/uL (4.8-10.8)
--- NOTE | 2020-12-17 16:13 | Discharge Summary ---
Date of Service December 17, 2020 Admission HPI Per Admitting Provider 80 year old male with PMHx significant for hx of [place], DM2, [place], GERD, chronic anemia, HTN who presents with long standing right knee pain. He has failed conservative measures including injections. Pain interfering with his ability to carry out normal daily activity. He would like to proceed with surgical intervention. Patient denies headaches, sweats, fevers, chills, double vision, blurred vision, cough, sore throat, dysphagia, chest pain, sob, wheezing, n/v/d/c, numbness, tingling, fatigue, urinary symptoms, mood disorders. ROS positive for right knee pain and stiffness. Admission Exam Per Admitting Provider Constitutional: well developed and well nourished; no acute distress Eyes: PERRL, conjunctivae normal, anicteric sclerae ENMT: external ear and nose normal, oropharynx normal Neck: trachea midline, no thyromegaly Respiratory: normal respiratory effort, lungs clear to auscultation Cardiovascular: RRR, no murmur, no edema Musculoskeletal: Right knee: Varus alignment. Tenderness medial joint line. Negative valgus and varus stress, positive Marcela's. ROM 0-125. Skin: no rashes, warm and dry Neurologic: patellar DTR's 2+ bilat, sensation intact Psychiatric: A+Ox3, euthymic affect Principal Diagnosis Right knee osteoarthritis Discharge Exam Constitutional well developed and well nourished; no acute distress Eyes PERRL, conjunctivae normal, anicteric sclerae ENMT external ear and nose normal, oropharynx normal Neck trachea midline, no thyromegaly Respiratory normal respiratory effort, lungs clear to auscultation Cardiovascular RRR, no murmur, no edema Skin no rashes, warm and dry Neurologic patellar DTR's 2+ bilat, sensation intact Psychiatric A+Ox3, euthymic affect Discharge Data Allergies Allergy/AdvReac Type Severity Reaction Status Date / Time diphenhydramine AdvReac Rash Verified 12/12/20 10:16 [From Benadryl] oxycodone AdvReac Rash Verified 12/12/20 10:16 Consultations 12/11/20 12:08 Consult Hospitalist Routine Procedures Performed Operation Date: 12/12/20 12:05 Actual Procedures p Right Total Knee Arthroplasty(Right) - Franklyn Raza MD Ordered Studies 12/12/20 05:00 US - OR guided needle placemen Routine Hospital Course (1) Status post total right knee replacement: Patient presented for same day admission following right total knee arthroplasty on 12/12/20. He tolerated procedure well. The Patient had an uneventful hospital course. Post-operatively, his activity was progressed and well tolerated. They participated in PT with ambulation distance of 150 feet. ROM of operative knee reached 85 degrees. Labs remained stable- lowest hemoglobin recorded: 9.4. Dr. Jorge A Brambila of medical service was consulted for medical management during admission. Pain controlled on oral medications. Please refer to daily progress notes and PT notes for complete details. After exam on 12/14/20, patient was felt to be stable for discharge home with home health PT. Patient will f/u in the office in about 2 weeks for further evaluation including x-rays and incision check, sooner if having any issues or concerns. POD#2 Right TKA -PT/OT -DVT prophylaxis-SCDs, TEDs, ASA 81mg bid -Pain management as written -AM labs pending -D/c planning-home with home therapy when stable, plan on discharge today after therapy. Total Time Total Time Spent Total Time Spent (In Minutes): 20 Discharge Plan Discharge Items Patient Disposition: Home - Home Health Services Reason For Visit: Osteoarthritis, Right Knee Discharge Diagnosis: Right knee osteoarthritis Activity: Per Instructions section Non-emergency contact: Surgeon Call non-emergency contact if: you have any medication questions, your pain is not controlled, your pain is worsening, your pain is concerning for you, you have a fever, your temperature is above 101, your temperature is above 101.5, your wound has increased redness and your wound has increased drainage Follow-up/Referrals: Yarely Ayala MD [Primary Care Provider] - Diet: Regular Addtl Attending Provider Instructions: ACTIVITY RECOMMENDATIONS: SELF CARE INSTRUCTIONS AFTER TOTAL KNEE REPLACEMENT A. You may need to continue a physical therapy program after discharge from the hospital. There are several options available to you. Your doctor will assist you in selecting the best one for you. 1. An out-patient facility 2 to 3 times a week for therapy or home therapy. 2. Continue working on all exercises taught to you in the hospital. Your goals should be to increase bending of your knee to 90 degrees and beyond and to fully straighten your knee. B. You may progress at your own pace from walking with a walker or crutches to a cane; then to no assistive devices. C. Make walking a part of your daily routine. Be up as much as comfortable w ith rest periods throughout the day. Rest with leg elevation is very important. Use the ice wrap frequently for the first 3-4 weeks. D. There are no restrictions on activities. You may ride in a car, shop, participate in marquetry worker and all social activities. E. Wear the long elastic stockings (AJITH hose) 20 hours a day for 2 weeks after surgery. They can be removed several times a day for laundering and for a bath. F. You may shower, no tub baths until cleared by your doctor. SPECIAL CARE INSTRUCTIONS: VERY IMPORTANT TO READ AND REVIEW A. There are a few signs you need to watch for after you are home. Call [facility] [place] if you notice any of the followin. Increased severe knee pain. Some pain is expected especially when you exercise. 2. Increased swelling in your leg or knee; pain or swelling of the calf muscle in either lower leg. 3. Any fluid drainage from the incision. 4. Shortness of breath or chest pain. B. Please call [facility] at if you have any concerns or questions about your operation or recovery. The doctor or his nurse will return your call promptly. C. You must take antibiotics before dental work, bladder, bowel or other surgery. Your doctor will provide you with a permanent care to carry describing this precaution. IMPORTANT: * REMEMBER TO TAKE ASPIRIN, 81 MG, TWICE DAILY FOR 4 WEEKS UNLESS OTHERWISE DIR ECTED. THIS IS YOUR BLOOD THINNER. * HIGH RISK PATIENTS MAY BE PRESCRIBED A STRONGER BLOOD THINNER. THIS WILL BE PROVIDED AT DISCHARGE. * CALL IF INCREASED PAIN, REDNESS, DRAINAGE OR FEVER GREATER THAT 101. * WEAR AJITH HOSE 20 HOURS PER DAY FOR 2 WEEKS. This is a large suction dressing covering your incision. This will help pull any excess drainage from the wound and allow your incision to heal properly. You may shower with this if you can keep the unit outside of the shower. If any bleeding or leakage is noted please call your doctor's office. This will remain on your incision for 7 days and then should be removed. This can be done yourself or by the home nursing staff if applicable. The entire unit is disposable once removed. Once removed, keep incision clean and dry. If redness or drainage is noted, please call your surgeon. IF INCISION IS LEAKING THROUGH DRESSING, CALL THE OFFICE . FOLLOW UP VISIT: If appointment is not already scheduled: Please call [facility] [place] to make a follow-up appointment for 2 weeks after your surgery at . Pending Studies at Discharge: No Stand-Alone Forms: My [facility], Smoking Cessation Medications and DC Order Prescriptions: New aspirin 81 mg Tablet,Delayed Release (Dr/Ec) 81 mg PO BID Qty: 60 RF: 0 hydrocodone-acetaminophen 5-325 mg Tablet 1 - 2 tab PO .Q4h-6h MDD 6 PRN (Reason: pain) Qty: 30 RF: 0 Continued metformin 500 mg Tablet 500 mg PO BID RF: 0 simvastatin 40 mg Tablet 40 mg PO HS RF: 0 lisinopril 10 mg Tablet 10 mg PO QAM RF: 0 omeprazole 20 mg Capsule,Delayed Release(Dr/Ec) 20 mg PO QAM RF: 0 ezetimibe [Zetia] 10 mg Tablet 10 mg PO PM RF: 0 duloxetine 60 mg Capsule,Delayed Release(Dr/Ec) 60 mg PO QAM RF: 0 ferrous sulfate 325 mg (65 mg iron) Capsule, Extended Release 325 mg PO QAM RF: 0 multivitamin Capsule 1 cap PO QAM RF: 0 Discharge Orders: Discharge Order (Routine); Ordered 12/14/20 Ordered By: Hira Durant Admission Data Admit Date/Time: 12/12/20 15:47 Attending Provider: Franklyn Raza Admit Provider: Franklyn Raza Primary Care Provider: Yarely Ayala Other Providers: Jorge A Brambila ; [facility] Other Interventions: Discharge Summary Assessment (RN) Last Done: 12/14/20 11:08
== END 2020-12-14 13:08 | disposition home health service (06) ==
LOC: 3E 09:45 → ASU 09:45